=== PATIENT | male | born 2000 | race African-American/Black ===

== ENCOUNTER 2024-09-08 10:55 | Emergency (ER) | payer MEDICAID, OTHER ==
[~2024-09-08] VITALS: Ht 182.9 cm; Wt 110.0 kg
[2024-09-08] MEDS: NALOXONE HCL 1MG/ML 2ML SYRINGE IV ONE (11:15)
--- NOTE | 2024-09-08 11:28 | ED.PDOC ---
Altered Mental Status HPI Comments HPI: Poor Historian. HPI: 24-year-old male brought in by EMS presents with a chief complaint of ALOC with Hypoglycemia. Patient was found in bed by family and was unresponsive and not waking up per EMS. Family of patient called EMS and reports that this has happened once before when patient was hypoglycemic. Patients initial blood sugar reading was 38 and EMS gave D10 bolus which brought sugar up to 180. Upon arrival, patients blood sugar was 80. Patients pupils were pinpoint according to EMS and they also gave 0.5 Narcan and states that patient started to become responsive by opening his eyes and is now able to speak. Patient denies any active pain at this time. Patient is now verbal and is requesting food to eat. Past Medical History: HTN, DM Past Surgical History: DENIES Social History: DENIES Medications: LANTUS Allergies: MORPHINE REVIEW OF SYSTEMS: CONSTITUTIONAL: Denies acute: fever, diaphoresis, chills, HEAD: Denies acute: headache, photophobia Eyes: Denies acute: Double vision, vision loss, eye pain, eye discharge. EARS: Denies acute: tinnitus, hearing loss, ear discharge, ear pain, THROAT: Denies acute: sore throat, swelling, difficulty swallowing , pain with swallowing, change in voice. NECK: Denies acute: neck pain, neck swelling, stiff neck. HEART: Denies acute : chest pain, palpitations, LUNGS: Denies acute: SOB, wheezing, cough, hemoptysis ABDOMEN: Denies acute: abdominal pain, Nausea, Vomiting, diarrhea, melena , hematemesis, hematochezia SKIN: Denies acute: rash, redness, lesions, itchiness. EXTREMITIES: Denies acute: calf pain, numbness, tingling, weakness, denies pain in extremity. Denies acute: Low back pain. Neuro: Denies acute: focal neurological deficit, motor or sensory focal neurological deficit, tremors, seizure like activity, dizziness, loss of bowel or bladder function, cauda equina like symptoms. : Denies acute: dysuria, hematuria, flank pain, increase in urinary frequency. PSYCH: Denies acute: hallucination, suicidal ideation, homicidal ideation. PHYSICAL EXAM: General: no acute distress, awake and alert. Head: normocephalic, atraumatic. Neck: supple, trachea is midline, no swelling. Throat: Normal phonation. Eyes:, no erythema, no purulent discharge, no proptosis, no icterus. Heart: regular rate, regular rhythm, no significant murmur appreciated. Lungs: no apparent respiratory distress, Able to speak in full sentences. No wheezing, no rhonchi, no crackles. No stridors Clear to auscultation bilaterally. Abdomen: non tender to palpation, non distended, soft, no guarding, no rebound, + bowel sounds. Neuro: Awake, Alert, oriented to name, self, situation, follows commands GCS=15. Speech is normal. Skin: no petechia, no purpura, no cyanosis, non-pale, not jaundice. Lower extremities: --no - Pitting edema no deformity, no focal swelling, no calf TTP. Makes eye contact. moves all four extremities. Face: no apparent facial droop. [facility] ED COURSE: Chief Complaint: ALOC Time Seen by MD: 11:09 Reviewed Notes: Nurses Notes, Medications, Allergies Allergies: Coded Allergies: Morphine (Verified Allergy, Unknown, 09/08/24) Information Source: Patient, Emergency Med Personnel Mode of Arrival: EMS Past Medical History PAST MEDICAL HISTORY: DM, HTN Surgical History: Denies all surgeries Family History Family History: Reviewed,noncontributory to illness Social History Smoker: Non-Smoker Alcohol: Denies ETOH Use Drugs: Denies Drug Use Lives In: Home Was a procedure done? Was a procedure done?: No Differential Diagnosis (ALOC) Differential Diagnosis: Dehydration, Hypoglycemia, DKA, Encephalopathy, Meningitis, Sepsis, Hypoxemia, Seizure, Closed Head Injury, CVA, Mass Lesion, SAH, Drug Overdose, ETOH Intoxication, Heart Failure, Renal Failure X-Ray, Labs, Meds, VS Vital Signs Date Time Temp Pulse Resp B/P (MAP) Pulse Ox O2 Delivery O2 Flow Rate FiO2 09/08/24 15:47 87 16 130/94 (106) 96 09/08/24 13:00 97.9 80 13 146/98 (114) 96 97.9 09/08/24 12:45 80 13 150/105 (120) 96 09/08/24 12:00 66 09/08/24 12:00 69 14 152/104 (120) 96 09/08/24 11:43 66 10 137/95 (109) 98 09/08/24 11:30 66 10 98 Room Air* 0 21 09/08/24 11:21 97.5 83 18 135/95 (108) 99 09/08/24 11:16 74 Lab Test 09/08/24 15:00 09/08/24 14:49 09/08/24 13:12 09/08/24 12:49 Range/Units Sodium Level 144 136-145 mmol/L Potassium Level 5.0 3.5-5.1 mmol/L Chloride Level 110 H 98-107 mmol/L Carbon Dioxide Level 29 20-31 mmol/L Anion Gap 5 5-15 Blood Urea Nitrogen 10 9-23 mg/dL Creatinine 1.33 H 0.700-1.30 mg/dL Glomerular Filtration Rate Calc 78 >90 mL/min BUN/Creatinine Ratio 7.5 L 10.0-20.0 Serum Glucose 244 #H 74-106 mg/dL Calcium Level 10.1 8.7-10.4 mg/dL Total Bilirubin 0.4 0.2-1.0 mg/dL Aspartate Amino Transferase (AST) 22 13-40 U/L Alanine Aminotransferase (ALT) 22 7-40 U/L Alkaline Phosphatase 102 46-116 U/L Total Protein 7.4 5.7-8.2 g/dL Albumin 4.7 3.2-4.8 g/dL POC Glucose 261 H 226 H 70-106 mg/dl Lactic Acid Level 3.1 *H 0.4-2.0 mmol/L Troponin I High Sensitivity 6 </=54 ng/L Test 09/08/24 11:53 09/08/24 11:46 09/08/24 11:24 Range/Units Urine Color Light-yellow Yellow Urine Clarity Clear Clear Urine pH 6.0 5.0-9.0 Urine Specific [place] 1.002 1.001-1.035 Urine Protein Negative Negative Urine Ketones Negative Negative Urine Blood Negative Negative /uL Urine Nitrite Negative Negative Urine Bilirubin Negative Negative Urine Urobilinogen Normal Negative mg/dL Urine Leukocyte Esterase Negative Negative /uL Urine RBC <1 0 - 3 /hpf Urine Microscopic WBC 0-3 /HPF Urine Squamous Epithelial Cells None seen <5 /hpf Urine Bacteria None seen None Seen /hpf Urine Glucose 2+ H Normal mg/dL Urine Opiates Screen Neg NEGATIVE Urine Fentanyl Screen Neg NEGATIVE Urine Barbiturates Screen Neg NEGATIVE Urine Phencyclidine Screen Neg NEGATIVE Urine Amphetamines Screen Neg NEGATIVE Urine Benzodiazepines Screen Neg NEGATIVE Urine Cocaine Screen Neg NEGATIVE Urine Cannabinoids Screen Neg NEGATIVE POC Glucose 48 *L 70-106 mg/dl White Blood Count 6.0 4.4-10.8 10^3/uL Red Blood Count 5.32 4.5-5.90 10^6/uL Hemoglobin 15.0 13.5-17.5 g/dL Hematocrit 46.5 41.0-53.0 % Mean Corpuscular Volume 87.5 80.0-100.0 fL Mean Corpuscular Hemoglobin 28.2 28.0-32.0 pg Mean Corpuscular Hemoglobin Concent 32.3 32.0-36.0 g/dL Red Cell Distribution Width 13.4 11.8-14.3 % Platelet Count 217 140-450 10^3/uL Mean Platelet Volume 9.1 6.9-10.8 fL Neutrophils (%) (Auto) 57.4 37.0-80.0 % Lymphocytes (%) (Auto) 27.1 10.0-50.0 % Monocytes (%) (Auto) 9.7 0.0-12.0 % Eosinophils (%) (Auto) 4.4 0.0-7.0 % Basophils (%) (Auto) 1.4 0.0-2.0 % Neutrophils # (Auto) 3.4 1.6-8.6 10 ^3/uL Lymphocytes # (Auto) 1.6 0.4-5.4 10 ^3/uL Monocytes # (Auto) 0.6 0-1.3 10 ^3/uL Eosinophils # (Auto) 0.3 0-0.8 10 ^3/uL Basophils # (Auto) 0.1 0-0.2 10 ^3/uL Nucleated Red Blood Cells 0.0 % Sodium Level 147 H 136-145 mmol/L Potassium Level 3.5 3.5-5.1 mmol/L Chloride Level 112 H 98-107 mmol/L Carbon Dioxide Level 28 20-31 mmol/L Anion Gap 7 5-15 Blood Urea Nitrogen 10 9-23 mg/dL Creatinine 1.18 0.700-1.30 mg/dL Glomerular Filtration Rate Calc 89 >90 mL/min BUN/Creatinine Ratio 8.5 L 10.0-20.0 Serum Glucose 37 *L 74-106 mg/dL Lactic Acid Level 2.1 *H 0.4-2.0 mmol/L Calcium Level 10.3 8.7-10.4 mg/dL Magnesium Level 1.9 1.6-2.6 mg/dL Total Bilirubin 0.5 0.2-1.0 mg/dL Aspartate Amino Transferase (AST) 27 13-40 U/L Alanine Aminotransferase (ALT) 22 7-40 U/L Alkaline Phosphatase 98 46-116 U/L Troponin I High Sensitivity 7 </=54 ng/L Total Protein 7.7 5.7-8.2 g/dL Albumin 4.9 H 3.2-4.8 g/dL Plasma/Serum Blood Alcohol < 3.0 <10 mg/dL Current Medications Medications (Trade) Dose Ordered Sig/Pelon Route Start Time Stop Time Status Last Admin Sodium Chloride 1,000 ml @ 1,000 mls/hr Q1H ONCE IV 09/08/24 11:15 09/08/24 12:14 DC 09/08/24 12:27 Dextrose 50 ml ONCE ONCE IV 09/08/24 12:15 09/08/24 12:16 DC 09/08/24 12:40 Sodium Chloride 500 ml @ 1,000 mls/hr Q30M ONCE IV 09/08/24 12:15 09/08/24 12:44 DC 09/08/24 12:55 [place] [id number] Ph: [phone] DIAGNOSTIC IMAGING Diagnostic Imaging Report : [id number] Signed PATIENT: SUGAR LAYTON ACCT: [id number] UNIT: [id number] : 2000 LOC: ER ROOM / BED: / AGE / SEX: 24 / M ADM STATUS: REG ER SERVICE 1114 ORDERING PHYSICIAN: LATOSHA KIM DO PROCEDURE(s): CXRP - CHEST PORTABLE REASON: ALOC, HYPOGLYCEMIA ORDER NUMBER(s): [id number], ACCESSION NUMBER(s): [id number] CHEST RADIOGRAPH Indication: ALOC, HYPOGLYCEMIA Technique: Single frontal view of the chest was obtained COMPARISON: None FINDINGS: Lines and Tubes: None Lungs: Clear Pleura: No effusion. No pneumothorax. Cardiomediastinal contours: Unremarkable Bones: Unremarkable IMPRESSION: 1. No acute disease. ATED BY: ANDREA AGUILAR MD DICTATED DATE/TIME: 09/08/24 1204 SIGNED BY: ANDREA AGUILAR MD SIGNED DATE/TIME: 09/08/24 1204 Images Reviewed?: Images reviewed and evaluated by me Time of 1ST Reevaluation: 11:39 Reevaluation 1ST: Unchanged Time of 2ND Reevaluation: 00:00 Reevaluation 2ND: Improved Patient Education/Counseling: Diagnosis, Treatment Family Education/Counseling: Other Comments Patient presented with the above HPI.--hypoglycemia/altered level of consciousness----workup was initiated. patient was found with the above mentioned diagnosis. the following medications were ordered: please refer to order lists of meds and tests obtained by myself Dr. Kim. Patient ED course and VS have been stabilized. Patient has been reassessed in the ED and remained in a stable condition. Pertinent incidental findings were discussed with the patient and/or family. Patient has been observed in the ED adequate length of time to insure improvement/stability. Escalation of care considered: Consideration of escalation to observation or admission Patient was ADMITTED to the medicine team for further evaluation and treatment of their presentation. However patient decided to leave against medical advice because he has to take his right to [facility]. All the reports of any imaging studies that were ordered by myself were reviewed by myself. Departure 1 Departure Time of Disposition: 12:11 Impression: Primary Impression: Hypoglycemic episode in patient with diabetes mellitus Additional Impressions: Altered level of consciousness Left against medical advice Disposition: ADMITTED INPATIENT Admit to: [facility] Condition: Guarded Discharged With: Self Critical Care Note Critical Care Time?: Yes (55 min-critical care time only) Heart Score Heart Score: Heart Score Response (Comments) Value History N/A 0 EKG N/A 0 Age N/A 0 Risk Factors N/A 0 Troponin N/A 0 Total 0 I personally scribed for LATOSHA KIM DO ([email or web address]) on 09/08/24 at 11:27. Electronically submitted by John Arndt ([email or web address]). I personally scribed for LATOSHA KIM DO ([email or web address]) on 09/08/24 at 12:13. Electronically submitted by John Arndt ([email or web address]). I personally scribed for LATOSHA KIM DO ([email or web address]) on 09/08/24 at 12:44. Electronically submitted by John Arndt ([email or web address]). LATOSHA KIM DO Sep 08, 2024 11:27
[2024-09-08 11:30] VITALS: PULSE 66; RESP 10; O2SAT 98
[2024-09-08] MEDS: DEXTROSE (25%) 10 ML SYRG IV ONE (11:30)
[2024-09-08 11:40] LABS: Basophils # (auto) 0.1 10 ^3/uL (0-0.2); Basophils % (auto) 1.4 % (0.0-2.0); Eosinophils # (auto) 0.3 10 ^3/uL (0-0.8); Eosinophils % (auto) 4.4 % (0.0-7.0); Hematocrit 46.5 % (41.0-53.0); Lymphocytes # (auto) 1.6 10 ^3/uL (0.4-5.4); Lymphocytes % (auto) 27.1 % (10.0-50.0); Mean Corpuscular Hemoglobin 28.2 pg (28.0-32.0); Mean Corpuscular Hgb Conc. 32.3 g/dL (32.0-36.0); Mean Corpuscular Volume 87.5 fL (80.0-100.0); Monocytes # (auto) 0.6 10 ^3/uL (0-1.3); Monocytes % (auto) 9.7 % (0.0-12.0); Neutrophils # (auto) 3.4 10 ^3/uL (1.6-8.6); Neutrophils % (auto) 57.4 % (37.0-80.0); Platelet Count (auto) 217 10^3/uL (140-450); Red Blood Cells 5.32 10^6/uL (4.5-5.90); Red Cell Distribution Width 13.4 % (11.8-14.3)
[2024-09-08 11:57] LABS: Alanine Aminotransferase 22 U/L (7-40); Alkaline Phosphatase 98 U/L (46-116); Anion Gap 7 (5-15); Aspartate Aminotransferase 27 U/L (13-40); BUN/Creatinine Ratio 8.5 (10.0-20.0); Blood Urea Nitrogen 10 mg/dL (9-23); Calcium 10.3 mg/dL (8.7-10.4); Carbon Dioxide 28 mmol/L (20-31); Magnesium 1.9 mg/dL (1.6-2.6); Total Protein 7.7 g/dL (5.7-8.2)
[2024-09-08 11:58] LABS: Bilirubin, Total 0.5 mg/dL (0.2-1.0); Chloride 112 mmol/L (98-107); Potassium 3.5 mmol/L (3.5-5.1); Sodium 147 mmol/L (136-145)
[2024-09-08 12:00] LABS: Albumin 4.9 g/dL (3.2-4.8); Blood Alcohol < 3.0 mg/dL (<10); Glucose 37 mg/dL (74-106); Lactic Acid w/Reflex 2.1 mmol/L (0.4-2.0)
[2024-09-08] MEDS: DEXTROSE 50% SYRINGE 50 ML IV ONE (12:04)
--- NOTE | 2024-09-08 12:06 | DVH ---
CHEST RADIOGRAPH Indication: ALOC, HYPOGLYCEMIA Technique: Single frontal view of the chest was obtained COMPARISON: None FINDINGS: Lines and Tubes: None Lungs: Clear Pleura: No effusion. No pneumothorax. Cardiomediastinal contours: Unremarkable Bones: Unremarkable IMPRESSION: 1. No acute disease.
[2024-09-08] MEDS: SODIUM CHLORIDE 0.9% 1,000 ML IV ONE ×2 (12:27→15:50)
[2024-09-08] MEDS: DEXTROSE (50%) 50ML SYRG IV ONE (12:40)
[2024-09-08 12:43] LABS: Urine Bacteria None Seen /hpf (None Seen)
[2024-09-08 12:54] LABS: Urine Blood Negative /uL (Negative); Urine Clarity Clear (Clear); Urine Protein, UAD Negative (Negative); Urine Specific Gravity 1.002 (1.001-1.035); Urine Squamous Epithelial Cell None Seen /hpf (<5); Urine Urobilinogen Normal (Negative)
[2024-09-08] MEDS: SODIUM CHLORIDE 0.9% 500 ML IV ONE (12:55)
[2024-09-08 13:00] VITALS: TEMP 97.9
[2024-09-08 13:01] LABS: Urine Color Light-Yellow (Yellow)
[2024-09-08 13:14] LABS: Amphetamine Screen, Urine Neg (NEGATIVE); Barbiturate Scree,Urine Neg (NEGATIVE); Benzodiazephine Screen, Urine Neg (NEGATIVE); Cannabinoid Screen, Urine Neg (NEGATIVE); Cocaine Screen, Urine Neg (NEGATIVE); Opiate Scree,Urine Neg (NEGATIVE); Phencyclidine Screen, Urine Neg (NEGATIVE)
[2024-09-08 15:41] LABS: Alanine Aminotransferase 22 U/L (7-40); Albumin 4.7 g/dL (3.2-4.8); Alkaline Phosphatase 102 U/L (46-116); Anion Gap 5 (5-15); Aspartate Aminotransferase 22 U/L (13-40); BUN/Creatinine Ratio 7.5 (10.0-20.0); Blood Urea Nitrogen 10 mg/dL (9-23); Calcium 10.1 mg/dL (8.7-10.4); Carbon Dioxide 29 mmol/L (20-31); Sodium 144 mmol/L (136-145); Total Protein 7.4 g/dL (5.7-8.2)
[2024-09-08 15:42] LABS: Bilirubin, Total 0.4 mg/dL (0.2-1.0); Chloride 110 mmol/L (98-107); Glucose 244 mg/dL (74-106)
[2024-09-08 15:47] VITALS: BP 130/94; PULSE 87; RESP 16; O2SAT 96
--- NOTE | 2024-09-08 18:23 | ECG ---
[facility] Test Date: 2024-09-08 Test Time: 11:04:20 Pat Name: SUGAR LAYTON Department: ED Room: Gender: M Field Mechanic: TERE : 2000 Requested By: LATOSHA KIM Order Number: [id number] Reading MD: Levon Baker Measurements Intervals [place] Rate: 74 P: 34 OR: 152 QRS: 95 QRSD: 97 T: 20 QT: 375 QTc: 416 Interpretive Statements Sinus rhythm Borderline right axis deviation ST elev, probable normal early repol pattern Electronically Signed On 09-12-2024 16:43:11 PDT by Levon Baker Please click the below link to view image of tracing.
== END 2024-09-08 15:49 | disposition left against medical advice (07) ==
LOC: ER 10:55 → EDBD 10:55 → ER 15:49
DX: E11.649 Type 2 diabetes mellitus with hypoglycemia without coma (principal); Z88.6 Allergy status to analgesic agent; Z79.899 Other long term (current) drug therapy
CPT/HCPCS: 36415; 71045; 80053; 80307; 80320; 81001; 82947; 83605; 83735; 84484; 85025; 93005; 96361; 96374; 99285; J7030; J7040; J7042; 82962